=== PATIENT | female | born 1935 | race Caucasian/White ===

== ENCOUNTER 2016-10-06 11:26 | Emergency (ER) | payer OTHER, MEDICARE ==
[~2016-10-06] VITALS: Ht 162.6 cm; Wt 82.6 kg
[~2016-10-06 11:26] MED LIST: CO-Q1030 MG PO; DIOVAN HCT 25 M1 TA1 PO; FLOVENT0.11 MG/Ac PO; HYDRALAZINE10 MG PO; KLOR-CON M1010 MEQ PO; LISINOPRIL10 MG PO; MAGNESIUM OXID400 MG PO; MELATONIN1 MG PO; MONTELUKAST SOD10 MG PO; SIMVASTATIN20 MG PO
--- NOTE | 2016-10-06 14:33 | ED GENERAL ADULT ---
History of Present Illness General Chief Complaint: General Adult Stated Complaint: COTTON MOUTH,TONGUE SWELLING S/P MEDS Source: patient Exam Limitations: no limitations Vital Signs & Intake/Output Vital Signs & Intake/Output Vital Signs Date Time Temp Pulse Resp B/P B/P Pulse O2 O2 Flow FiO2 Mean Ox Delivery Rate 10/06 1442 96.2 68 18 177/88 98 10/06 1420 99 Room Air 10/06 1133 97.0 75 15 196/89 98 Room Air Room Air Allergies Coded Allergies: MDX - Acetaminophen (From PERCOCET) (ITCHING 10/06/16) MDX - Codeine (CODEINE) (UNKNOWN 10/06/16) MDX - Contrast Media, Gadolinium Re (Contrast Media, Gadolinium Related) ( UNKNOWN 10/06/16) MDX - Contrast Media, Iodine Relate (Contrast Media, Iodine Related) (UNKNOWN ) MDX - Contrast Media, Iron Related (Contrast Media, Iron Related) (UNKNOWN 10/06) MDX - Contrast Media, Perfluorocarb (Contrast Media, Perfluorocarbon Rel) ( UNKNOWN 10/06/16) MDX - Iodine-Containing (UNKNOWN 10/06/16) MDX - Latex (UNKNOWN 10/06/16) MDX - Oxycodone (From PERCOCET) (ITCHING 10/06/16) MDX - Red Dye (Red Dye) (FUNNY FEELING IN THROAT 10/06/16) MDX - Yellow Dye (Tartrazine, Fd&C (Yellow Dye (Tartrazine, Fd&C No. 5)) (FUNNY FEELING IN THROAT 10/06/16) Reconcile Medications Coenzyme Q10 (Co-Q10) 30 MG SGL 1 TAB PO DAILY SUPPLEMENT (Reported) Fluticasone Propionate (Flovent) 0.11 MG/Actuation GERMÁN 2 PUFF PO DAILY ASTHMA (Reported) HYDRALAZINE HCL (Hydralazine) 10 MG TABLET 1 TAB PO PRN PRN BLOOD PRESSURE > 170 HYDRALAZINE HCL (Hydralazine) 10 MG TAB 1 TAB PO Q12 PRN ELEVATED BLOOD PRESSURE Hydrochlorothiazide/Valsarta (Diovan Hct 25 MG-320 MG) 1 TAB TAB 1 TAB PO DAILY BP (Reported) Lisinopril 10 MG TABLET 1 TAB PO DAILY BP (Reported) Magnesium Oxide 400 MG TABLET 1 TAB PO DAILY SUPPLEMENT (Reported) Melatonin 1 MG TABLET 2 TAB PO DAILY SLEEP (Reported) Montelukast Sodium 10 MG TABLET 1 TAB PO DAILY ALLERGIES (Reported) Potassium Chloride (Klor-Con M10) 10 MEQ TAB.ER.PRT 1 TAB PO DAILY SUPPLEMENT (Reported) Simvastatin (Zocor) 20 MG TAB 1 TAB PO QPM CHOLESTEROL (Reported) Triage Note: PT TO ED C/C OF TONGUE FEELING DRY AND ?SWOLLEN S/P TAKING BENADRYL. PT DENIES SOB. TONGUE NOT SWOLLEN IN TRIAGE, HANDLING OWN SECRETIONS. NO ACUTE DISTRESS NOTED. Triage Nurses Notes Reviewed? yes HPI: Patient is a 81 year old female presents complaining of dry mouth. Patient reports she has been on Prednisone for a reaction to a bite to her right side. Also taking Oxybutinin. Last night patient took a dose of Benadryl 25 mg last night to help with difficulty sleeping. This morning after drinking coffee patient noticed severe dry mouth and tingling of her mouth. Symptoms were severe, are now moderate. Denies chest pain, difficulty breathing, fevers, chills. (MIKO OCONNELL) Past History Travel History Traveled to [place] past 21 day No Medical History Any Pertinent Medical History? see below for history Cardiovascular: hypertension, HYPERLIPIDEMIA Respiratory: asthma Blood Disorders: NONE Cancer(s): NONE Pneumonia Vaccine: 02/26/09 Influenza Vaccine: 02/27/12 Surgical History Surgical History: non-contributory Psychosocial History Who do you live with Family What is your primary language Korean Tobacco Use: Never used ETOH Use: denies use Illicit Drug Use: denies illicit drug use Family History Hx Contributory? No (MIKO OCONNELL) Review of Systems Review of Systems Constitutional: Denies: chills, fever. EENTM: Reports: see HPI. Respiratory: Denies: cough, short of breath. Cardiovascular: Denies: chest pain. GI: Denies: abdominal pain, nausea, vomiting. Genitourinary: Reports: no symptoms. Musculoskeletal: Reports: no symptoms. Skin: Reports: no symptoms. Neurological/Psychological: Reports: no symptoms. Hematologic/Endocrine: Reports: no symptoms. Immunologic/Allergic: Reports: no symptoms. (MIKO OCONNELL) Physical Exam Physical Exam General Appearance: well developed/nourished, alert, awake Head: atraumatic, normal appearance Eyes: Bilateral: normal appearance, PERRL, EOMI. Ears, Nose, Throat: normal pharynx, hearing grossly normal, no edema Neck: normal inspection, supple, full range of motion Respiratory: normal breath sounds, chest non-tender, no respiratory distress, lungs clear Cardiovascular: regular rate/rhythm Back: normal inspection, normal range of motion Extremities: normal inspection, normal capillary refill, normal range of motion, no edema Neurologic/Psych: no motor/sensory deficits, awake, alert, oriented x 3, normal gait, normal mood/affect Skin: intact, normal color, warm/dry Lymphatic: no anterior cervical oj Core Measures ACS in differential dx? No CVA/TIA Diagnosis: No Severe Sepsis Present: No Septic Shock Present: No (MIKO OCONNELL) Progress Differential Diagnoses I considered the following diagnoses in my evaluation of the patient: anticholingergic effects, allergic reaction, dehydration Plan of Care: Patient discussed with and seen by Dr. Hall I suspect the patient's trimethyl secondary to the anticholinergic properties of the Benadryl. Patient's elevated blood pressure was discussed with her. Patient reports that she will monitor it at home and has additional blood pressure medication to take in case that it remains elevated. Initial ED EKG: none (MIKO OCONNELL) Departure Departure Disposition: HOME OR SELF CARE Condition: Stable Clinical Impression Primary Impression: Medication reaction Referrals: AJAY AGUILAR,АНДРЕЙ Love (PCP/Family) Additional Instructions: Do not take the Benadryl anymore. Return to the ER if any worsening of symptoms. Departure Forms: Customer Survey General Discharge Information (MIKO OCONNELL) PA/METAL TUBE CUTTER Co-Sign Statement Statement: ED Attending supervision documentation- [X] I saw and evaluated the patient. I have also reviewed all the pertinent lab results and diagnostic results. I agree with the findings and the plan of care as documented in the PA's/METAL TUBE CUTTER's documentation. [] I have reviewed the ED Record and agree with the PA's/METAL TUBE CUTTER's documentation. [] Additions or exceptions (if any) to the PAs/METAL TUBE CUTTER's note and plan are summarized below: [] (JENNA AGUILAR,BILL Cabrera) Critical Care Note Critical Care Note Critical Care Time: non-applicable (MIKO OCONNELL)
[2016-10-06 14:42] VITALS: BP 177/88
== END 2016-10-06 14:49 ==
LOC: ERH 11:26
DX: T50.905A Adverse effect of unspecified drugs, medicaments and biological substances, initial encounter (principal)

== ENCOUNTER 2017-09-23 23:31 | Emergency (ER) | payer OTHER, MEDICARE ==
[~2017-09-23] VITALS: Ht 162.6 cm; Wt 83.5 kg
--- NOTE | 2017-09-23 23:35 | ED NOSE COMPLAINT ---
History of Present Illness General Chief Complaint: Epistaxis/Nasal Foreign Body Stated Complaint: NOSE BLEED Source: patient Exam Limitations: no limitations Vital Signs & Intake/Output Vital Signs & Intake/Output Vital Signs Date Time Temp Pulse Resp B/P B/P Pulse O2 O2 Flow FiO2 Mean Ox Delivery Rate 09/23 2334 97.3 86 20 190/85 95 Room Air ED Intake and Output 09/24 0000 09/23 1200 Intake Total Output Total Balance Patient 184 lb Weight Allergies Coded Allergies: MDX - Acetaminophen (From PERCOCET) (ITCHING 10/06/16) MDX - Codeine (CODEINE) (UNKNOWN 10/06/16) MDX - Contrast Media, Gadolinium Re (Contrast Media, Gadolinium Related) ( UNKNOWN 10/06/16) MDX - Contrast Media, Iodine Relate (Contrast Media, Iodine Related) (UNKNOWN ) MDX - Contrast Media, Iron Related (Contrast Media, Iron Related) (UNKNOWN 10/06) MDX - Contrast Media, Perfluorocarb (Contrast Media, Perfluorocarbon Rel) ( UNKNOWN 10/06/16) MDX - Iodine-Containing (UNKNOWN 10/06/16) MDX - Latex (UNKNOWN 10/06/16) MDX - Oxycodone (From PERCOCET) (ITCHING 10/06/16) MDX - Red Dye (Red Dye) (FUNNY FEELING IN THROAT 10/06/16) MDX - Yellow Dye (Tartrazine, Fd&C (Yellow Dye (Tartrazine, Fd&C No. 5)) (FUNNY FEELING IN THROAT 10/06/16) Reconcile Medications Coenzyme Q10 (Co-Q10) 30 MG SGL 1 TAB PO DAILY SUPPLEMENT (Reported) Fluticasone Propionate (Flovent) 0.11 MG/Actuation GERMÁN 2 PUFF PO DAILY ASTHMA (Reported) HYDRALAZINE HCL (Hydralazine) 10 MG TABLET 1 TAB PO PRN PRN BLOOD PRESSURE > 170 HYDRALAZINE HCL (Hydralazine) 10 MG TAB 1 TAB PO Q12 PRN ELEVATED BLOOD PRESSURE Hydrochlorothiazide/Valsarta (Diovan Hct 25 MG-320 MG) 1 TAB TAB 1 TAB PO DAILY BP (Reported) Lisinopril 10 MG TABLET 1 TAB PO DAILY BP (Reported) Magnesium Oxide 400 MG TABLET 1 TAB PO DAILY SUPPLEMENT (Reported) Melatonin 1 MG TABLET 2 TAB PO DAILY SLEEP (Reported) Montelukast Sodium 10 MG TABLET 1 TAB PO DAILY ALLERGIES (Reported) Potassium Chloride (Klor-Con M10) 10 MEQ TAB.ER.PRT 1 TAB PO DAILY SUPPLEMENT (Reported) Simvastatin (Zocor) 20 MG TAB 1 TAB PO QPM CHOLESTEROL (Reported) Triage Nurses Notes Reviewed? yes Onset: Abrupt Duration: hour(s): Timing: recent history Injury Environment: home Severity: mild Associated Symptoms: left nare bleeding HPI: 82 yo woman presents with left nare bleeding. Yesterday, she had both her nares cauterized. She is on omnicef for sinusitis. This evening, "the clots just started pouring out... clots of blood from her my left nostril." She is otherwise well. Past History Travel History Traveled to [place] past 21 day No Medical History Any Pertinent Medical History? see below for history Cardiovascular: hypertension, HYPERLIPIDEMIA Respiratory: asthma Blood Disorders: NONE Cancer(s): NONE Surgical History Surgical History: non-contributory Psychosocial History Who do you live with Family What is your primary language Citizen [place] Family History Hx Contributory? No Review of Systems Review of Systems Constitutional: Reports: no symptoms. EENTM: Reports: no symptoms. Respiratory: Reports: no symptoms. Cardiovascular: Reports: no symptoms. GI: Reports: no symptoms. Genitourinary: Reports: no symptoms. Musculoskeletal: Reports: no symptoms. Skin: Reports: no symptoms. Neurological/Psychological: Reports: no symptoms. Hematologic/Endocrine: Reports: no symptoms. Immunologic/Allergic: Reports: no symptoms. All Other Systems: Reviewed and Negative Physical Exam Physical Exam General Appearance: well developed/nourished, mild distress Head: atraumatic Eyes: Bilateral: normal appearance. Nose: moist blood in left nare. no bleeing in right nare Neck: normal inspection, supple, full range of motion Neurologic/Psych: no motor/sensory deficits, awake, alert, oriented x 3 Skin: intact, normal color, warm/dry Progress Differential Diagnoses I considered the following diagnoses in my evaluation of the patient: epistaxis vs other. Plan of Care: Current Medications Sig/Viral Start time Last Medication Dose Stop Time Status Admin Oxymetazoline HCl 2 SPRAY ONCE ONE 09/23 2345 UNVr 09/24 (Afrin) 09/236 0019 Initial ED EKG: none Departure Departure Disposition: HOME OR SELF CARE Condition: Stable Clinical Impression Primary Impression: Epistaxis Referrals: Felix AGUILAR,Paddy Warner (PCP/Family) Departure Forms: Customer Survey General Discharge Information Comments 09/24/17, 0:48.... no bleeding after several minutes of observation after nasal rocket placed... pt on abx... will see ENT on monday. encouraged close follow up. Procedures Epistaxis/Nasal Foreign Body Status: no bleeding Clots Cleared Nasal Passage: by patient blowing Nasal Drops Instilled: Left: Afphrin. Ext Pressure/Nose Pinch (min): 15 Inspected With: otoscope Bleeding Site: left nare.. moist blood Nasal Rocket: Left: Inserted Posterior. Progress: excellent result
[2017-09-24 01:05] VITALS: BP 185/84
== END 2017-09-24 01:41 ==
LOC: ERH 23:31
DX: R04.0 Epistaxis (principal)

== ENCOUNTER 2017-09-30 22:37 | Emergency (ER) | payer OTHER, MEDICARE ==
[2017-10-01 00:02] VITALS: BP 144/79
--- NOTE | 2017-10-01 01:09 | ED NOSE COMPLAINT ---
History of Present Illness General Chief Complaint: Epistaxis/Nasal Foreign Body Stated Complaint: EPISTAXIS Source: patient Exam Limitations: no limitations Vital Signs & Intake/Output Vital Signs & Intake/Output Vital Signs Date Time Temp Pulse Resp B/P B/P Pulse O2 O2 Flow FiO2 Mean Ox Delivery Rate 10/01 0002 97.6 66 18 144/79 96 Room Air 09/30 2241 96.8 86 18 147/81 96 Room Air Allergies Coded Allergies: Iodinated Contrast- Oral and IV Dye (UNKNOWN 09/24/17) Iodine and Iodide Containing Produc (UNKNOWN 09/24/17) acetaminophen (From PERCOCET) (ITCHING 09/24/17) codeine (UNKNOWN 09/24/17) latex (UNKNOWN 09/24/17) oxycodone (From PERCOCET) (ITCHING 09/24/17) red dye ("FUNNY FEELING IN THROAT" 09/24/17) yellow dye ("FUNNY FEELING IN THROAT" 09/24/17) Reconcile Medications Coenzyme Q10 (Co-Q10) 30 MG SGL 1 TAB PO DAILY SUPPLEMENT (Reported) Fluticasone Propionate (Flovent) 0.11 MG/Actuation GERMÁN 2 PUFF PO DAILY ASTHMA (Reported) HYDRALAZINE HCL (Hydralazine) 10 MG TABLET 1 TAB PO PRN PRN BLOOD PRESSURE > 170 HYDRALAZINE HCL (Hydralazine) 10 MG TAB 1 TAB PO Q12 PRN ELEVATED BLOOD PRESSURE Hydrochlorothiazide/Valsarta (Diovan Hct 25 MG-320 MG) 1 TAB TAB 1 TAB PO DAILY BP (Reported) Lisinopril 10 MG TABLET 1 TAB PO DAILY BP (Reported) Magnesium Oxide 400 MG TABLET 1 TAB PO DAILY SUPPLEMENT (Reported) Melatonin 1 MG TABLET 2 TAB PO DAILY SLEEP (Reported) Montelukast Sodium 10 MG TABLET 1 TAB PO DAILY ALLERGIES (Reported) Potassium Chloride (Klor-Con M10) 10 MEQ TAB.ER.PRT 1 TAB PO DAILY SUPPLEMENT (Reported) Simvastatin (Zocor) 20 MG TAB 1 TAB PO QPM CHOLESTEROL (Reported) Triage Note: PT TO TRIAGE WITH NOSE BLEED, L NARE. PT HAD NASAL PACKING IN PLACE FOR 7 DAYS AND REMOVED TODAY WELL HAVING CAUTERIZATION, BUT TONIGHT WHILE LYING DOWN BLEEDING STARTED AGAIN. DENIES THINNERS. Triage Nurses Notes Reviewed? yes Onset: Abrupt Duration: gone now Timing: recent history Injury Environment: home Severity: mild Modifying Factors: Improves With: rest, other (better w/compression/gauze). Associated Symptoms: left nare bleeding HPI: 82 yo woman h/o left nare bleeding, was seen 1 week ago, packed in ED by myself, followed up with ENT, was cauterized, is on antibiotics. Her nasal packing was removed yesterday. Tonight, she noticed a small amount of bleeding from the left nare, no clots. Bright red. She placed a gauze pad in her nose. The bleeding resolved. She is otherwise feeling well. Past History Travel History Traveled to [place] past 21 day No Medical History Any Pertinent Medical History? see below for history Neurological: NONE EENT: NONE Cardiovascular: hypertension, HYPERLIPIDEMIA Respiratory: asthma Gastrointestinal: NONE Hepatic: NONE Renal: NONE Musculoskeletal: NONE Psychiatric: NONE Endocrine: NONE Blood Disorders: NONE Cancer(s): NONE PRODUCTION SUPV/Reproductive: NONE Surgical History Surgical History: non-contributory Psychosocial History Who do you live with Family What is your primary language Upper Sorbian Tobacco Use: Never used Family History Hx Contributory? No Review of Systems Review of Systems Constitutional: Reports: no symptoms. EENTM: Reports: no symptoms. Respiratory: Reports: no symptoms. Cardiovascular: Reports: no symptoms. GI: Reports: no symptoms. Genitourinary: Reports: no symptoms. Musculoskeletal: Reports: no symptoms. Skin: Reports: no symptoms. Neurological/Psychological: Reports: no symptoms. Hematologic/Endocrine: Reports: no symptoms. Immunologic/Allergic: Reports: no symptoms. All Other Systems: Reviewed and Negative Physical Exam Physical Exam General Appearance: well developed/nourished, mild distress Head: atraumatic Eyes: Bilateral: normal appearance. Nose: cauterized left nare is not actively bleeding. no sign of infection. Mouth/Throat: normal mouth inspection, pharynx normal Neck: normal inspection, supple, full range of motion Back: normal inspection Neurologic/Psych: no motor/sensory deficits, awake, alert, oriented x 3 Progress Differential Diagnoses I considered the following diagnoses in my evaluation of the patient: left nare ant vs posterior bleeding. Plan of Care: sponge placed in left nare w/ bacitracin... compression with tongue depressors x 15 minutes. no active bleeding in the ED. Initial ED EKG: none Departure Departure Disposition: HOME OR SELF CARE Condition: Stable Clinical Impression Primary Impression: Epistaxis Referrals: Felix AGUILAR,Paddy Warner (PCP/Family) Additional Instructions: follow up with dr. church or dr. sow ([id number]) Departure Forms: Customer Survey General Discharge Information Comments no bleeding in the ED. sponge placed in left nare... encouraged close follow up.
== END 2017-10-01 01:51 ==
LOC: ERH 22:37
DX: R04.0 Epistaxis (principal)